=== PATIENT | male | born 1975 | race Two or more races ===

== ENCOUNTER 2017-05-07 03:20 | Emergency (ER) | payer SELFPAY ==
--- NOTE | 2017-05-07 03:26 | PDOC ---
History of Present Illness - General Chief Complaint: Pain Stated Complaint: I THINK I BROKE MY LEFT BIG TOE Time Seen by Provider: 05/07/17 03:22 - History of Present Illness Initial Comments: 05/07/17 03:35 This otherwise healthy 42-year-old man presents with trauma to his left great toe: A few hours prior to presentation, while he was attempting to keep another dog from attacking his own dog, he kicked the dog with his left foot. Patient was wearing athletic shoes at the time. He felt immediate pain in the great toe and had difficulty walking secondary to pain. Patient has history of previously breaking the left great toe when he kicked a television set. This occurred approximately one year ago. Healing of that fracture was unremarkable and he has had no residual pain in the left great toe. Patient did not sustain any other trauma tonight. Patient's health is otherwise unremarkable. Patient is not currently taking any medications He has no known ALLERGIES Past History - Past Medical History Allergies/Adverse Reactions: Allergies Allergy/AdvReac Type Severity Reaction Status Date / Time No Known Allergies Allergy Verified 05/07/17 03:22 Home Medications: Ambulatory Orders NK [No Known Home Medication] 05/07/17 Review of Systems - Review of Systems Able to Perform ROS?: Yes Comments:: 12 point review of systems is negative except for what is noted in the history of present illness *Physical Exam - Physical Exam Comments: GENERAL: Adult male, alert and oriented 3, in no acute distress EXTREMITIES: Left lower extremitygreat toe: Moderate tenderness, faint ecchymosis distal phalanx without deformity No subungual hematoma; range of motion is present but painful Mild tenderness at MTP joint without edema or ecchymosis Remainder of the extremity exam is normal NEUROLOGICAL: Cranial nerves II through XII grossly intact. Normal speech. No focal neurological deficits. MUSCULOSKELETAL: Back non-tender to palpation, no CVA tenderness SKIN: Warm, Dry, normal turgor, no rashes or lesions noted. Progress Note - Progress Note Progress Note: Left great toe x-ray reveals nondisplaced fracture of the distal phalanx. Cast shoe applied to the left foot. Patient advised to elevate and apply ice to the left foot as much as possible over the next 2 days. The patient should use acetaminophen/ibuprofen/naproxen as needed for pain He should use a cast shoe for the next 2-3 weeks If he has persistent severe pain, he should follow-up with orthopedic group. Patient has no orthopedist and was given the [facility] referral information for follow-up as needed. *DC/Admit/Observation/Transfer Diagnosis at time of Disposition: Fractured great toe Qualifiers: Encounter type: initial encounter Fracture type: closed Phalanx: proximal Fracture alignment: nondisplaced Laterality: left Qualified Code(s): S92.415A - Nondisplaced fracture of proximal phalanx of left great toe, initial encounter for closed fracture - Discharge Dispostion Disposition: HOME Condition at time of disposition: Stable - Referrals - Patient Instructions Printed Discharge Instructions: Smoking Cessation, DI for Toe Fracture Additional Instructions: ice/elevation of left foot as much as possible for the next 2 days Use hard shoe for the next 2-3 weeks Acetaminophen/ibuprofen/naproxen as needed for pain Follow-up with orthopedic group([facility]) if pain is persistent
[2017-05-07 03:29] VITALS: BP 123/85; PULSE 94; TEMP 98.6; BMI 20.2
== END 2017-05-07 03:58 | disposition home or self-care (01) ==
LOC: FER 03:20
DX: S92.415A Nondisplaced fracture of proximal phalanx of left great toe, initial encounter for closed fracture (principal); W22.8XXA Striking against or struck by other objects, initial encounter; Y93.89 Activity, other specified; Y92.9 Unspecified place or not applicable
CPT/HCPCS: 73660-TC; 99281-25

== ENCOUNTER 2019-05-10 16:19 | Emergency (ER) | payer OTHER ==
[2019-05-10 16:31] VITALS: BP 114/72; PULSE 78; TEMP 97.8; BMI 22.0
--- NOTE | 2019-05-10 16:31 | PDOC ---
History of Present Illness - General Chief Complaint: Injury Stated Complaint: LEFT EAR PAIN Time Seen by Provider: 05/10/19 16:30 - History of Present Illness Initial Comments: 44 y/o M no significant medical hx. presenting after possibly puncturing left ear drum with Q tip 1-2 hrs prior to presentation heard a popping and whooshing sound at time of injury denies any blood coming out of ear. He can still hear out of his left ear. He denies any blood coming out of his nose or any other trauma. There was pain at time of incident but he feels some relief after smoking a blunt of marijuana. 05/10/19 17:54 Past History - Past Medical History Allergies/Adverse Reactions: Allergies Allergy/AdvReac Type Severity Reaction Status Date / Time No Known Allergies Allergy Verified 05/10/19 16:21 Home Medications: Ambulatory Orders Ofloxacin Otic [Floxin Otic -] 1 drop BID 14 Days #1 bottle 05/10/19 COPD: No - Immunization History Immunization Up to Date: Yes - Psycho Social/Smoking Cessation Hx Smoking History: Never smoked Have you smoked in the past 12 months: No Number of Cigarettes Smoked Daily: 20 Information on smoking cessation initiated: No 'Breaking Loose' booklet given: 06/22/16 Hx Alcohol Use: No Drug/Substance Use Hx: Yes (HX) Substance Use Type: None, Marijuana Review of Systems - Review of Systems Constitutional: No: Chills, Fever HEENTM: No: Eye Pain, Blurred Vision Respiratory: No: Cough, Shortness of Breath Cardiac (ROS): No: Chest Pain, Lightheadedness ABD/GI: No: Nausea, Vomiting : No: Burning, Dysuria Musculoskeletal: No: Back Pain, Joint Pain Integumentary: No: Bruising, Change in Color Neurological: No: Headache, Numbness Hematologic/Lymphatic: No: Blood Clots, Easy Bleeding *Physical Exam - Vital Signs Last Vital Signs Temp Pulse Resp BP Pulse Ox 97.8 F 78 20 114/72 100 05/10/19 16:20 05/10/19 16:20 05/10/19 16:20 05/10/19 16:20 05/10/19 16:20 - Physical Exam Comments: 05/10/19 17:04 PE: GENERAL: Awake, alert, and fully oriented, in no acute distress HEAD: No signs of trauma, normocephalic, atraumatic EYES: sclera anicteric, conjunctiva clear ENT: Auricles normal inspection, tenderness to palpation of tragus. small amount of blood in 9 o'clock position of ear canal. possible rupture/puncture of membrane at 3 o clock position. hearing grossly intact but sounds less clear. NECK: Normal ROM, supple, no lymphadenopathy, JVD, or masses LUNGS: No distress, speaks full sentences, clear to auscultation bilaterally HEART: Regular rate and rhythm, normal S1 and S2, no murmurs, rubs or gallops, peripheral pulses normal and equal bilaterally. ABDOMEN: Soft, nontender, normoactive bowel sounds. No guarding, no rebound. No masses EXTREMITIES : Normal inspection, Normal range of motion, no edema. No clubbing or cyanosis NEUROLOGICAL: Cranial nerves II through XII grossly intact. Normal speech, normal gait, no focal sensorimotor deficits SKIN: Warm, Dry, normal turgor, no rashes or lesions noted Medical Decision Making - Medical Decision Making 05/10/19 17:07 44 y/o M no significant medical hx. presenting after possibley puncturing ear drum with Q tip heard a popping and whooshing sound at time of injury denies any blood coming out of ear. possible rupture sending home with ofloxacin drops and follow up with ENT Discharge - Discharge Information Problems reviewed: Yes Clinical Impression/Diagnosis: Tympanic membrane perforation Qualifiers: Laterality: left Qualified Code(s): H72.92 - Unspecified perforation of tympanic membrane, left ear Condition: Stable Disposition: HOME - Admission No - Additional Discharge Information Prescriptions: Ofloxacin Otic [Floxin Otic -] 1 drop BID 14 Days #1 bottle - Follow up/Referral Referrals: Joe Sheldon MD [Staff Physician] - 2 Days - Patient Discharge Instructions Patient Printed Discharge Instructions: Ruptured Eardrum Additional Instructions: You were seen in the ER for a ruptured eardrum Do not use Q-tips to clean your ear use the drops that have been prescribed follow up with an specialist managers. Information for one has been provided to yout RETURN TO THE ER IF - you develop increased swelling and pain -blood starts coming out of your ear. -fevers or chills. - Post Discharge Activity
--- NOTE | 2019-05-10 17:08 | PDOC ---
Attending Attestation - Resident Resident Name: Skyla Mendoza - ED Attending Attestation I have performed the following: I have examined & evaluated the patient, The case was reviewed & discussed with the resident, I agree w/resident's findings & plan - HPI HPI: 05/10/19 17:06 Patient accidentally poked his left eardrum when his child jumped while cleaning his left ear with a Q-tip, injury occurred approximately 1 to 2 hours prior to arrival. No active bleeding. No drainage. Hearing is intact. He does hear some popping sounds. - Physicial Exam PE: 05/10/19 17:06 On examination, the patient is awake, alert, and appears comfortable. The left external ear appears normal with no drainage. The left ear canal has a small amount of dried blood. The tympanic membrane has a small defect. Hearing was tested and is grossly intact. Right ear appears normal. - Medical Decision Making 05/10/19 17:07 Mechanical trauma to the left eardrum with possible perforation. Patient given ofloxacin drops, 1 drop twice a day for [address] Morelos, ENT for follow-up on Sunday.
== END 2019-05-10 17:26 | disposition home or self-care (01) ==
LOC: FER 16:19
DX: H72.92 Unspecified perforation of tympanic membrane, left ear (principal); X58.XXXA Exposure to other specified factors, initial encounter; Y93.89 Activity, other specified; Y92.89 Other specified places as the place of occurrence of the external cause
CPT/HCPCS: 99282-25